=== PATIENT | female | born 1985 | race Two or more races ===

== ENCOUNTER 2020-03-15 11:18 | Outpatient (CLI) | payer OTHER | END 2020-03-15 11:29 | disposition home or self-care (01) | LOC: SONOGRAMA 11:18 → MAMO-SONO 12:15 | PROVIDERS: ATTEND Obstetrics & Gynecology Gynecology | DX: N84.0 Polyp of corpus uteri (principal); N60.11 Diffuse cystic mastopathy of right breast; N60.12 Diffuse cystic mastopathy of left breast; N93.0 Postcoital and contact bleeding; Z80.0 Family history of malignant neoplasm of digestive organs; N92.6 Irregular menstruation, unspecified ==

== ENCOUNTER 2022-08-20 09:16 | Outpatient (CLI) | payer OTHER | END 2022-08-20 09:18 | disposition home or self-care (01) | LOC: NUCLEAR 09:16 | PROVIDERS: ATTEND Surgery | DX: R10.13 Epigastric pain (principal) ==